=== PATIENT | female | born 1990 | race African-American/Black ===

== ENCOUNTER → 2017-11-23 14:12 | Outpatient (CLI) | payer MEDICAID, SELFPAY ==
[2017-11-28 07:56] LABS: HPV HC, High Risk Negative (Negative)
[2017-11-28 07:57] LABS: HPV Reflexed? YES, CHARGE PATIENT
== END ==
PROVIDERS: Visit Provider Obstetrics & Gynecology
DX: Z12.4 Encounter for screening for malignant neoplasm of cervix (principal)
CPT/HCPCS: 87624; 88175; G0145

== ENCOUNTER 2018-06-24 07:13 | Emergency (ER) | payer MEDICAID, SELFPAY ==
[2018-06-24 07:14] VITALS: BP 117/68; PULSE 82; RESP 17; TEMP 36.7; O2SAT 98; BMI 30.6
--- NOTE | 2018-06-24 07:36 | ED.DCSUM_ITS ---
- ER Visit Summary Date of Service: 06/24/18 Chief Complaint: Constipation History of Present Illness: The patient is a 27 F who is currently 8 weeks gestation presents to the emergency department abdominal pain and constipation. The patient states that she had a confirmed about 3 weeks ago. She has been battling hyperemesis. She was started on Zofran. She states since she was started on it, she has had rather significant diminished stool output. She is to the point where she is almost passing no stool and today has had difficulty passing gas. She describes some diffuse abdominal cramping. Her pain is worse when she stands and she feels lightheaded. She denies any fevers or chills. She has had prior history of . She denies any vaginal bleeding or discharge. Physical Examination: Vital signs reviewed General: Well-nourished, well-developed Head: Normocephalic, atraumatic Eyes: Pupils equal and reactive, extraocular muscles intact Neck, supple, no lymphadenopathy Heart: Regular rate and rhythm Respiratory: No distress, clear bilaterally Abdomen: Soft, nontender, nondistended, no peritoneal signs Back: Nontender Extremities: Nontender, no edema, no cords Skin: Normal color no rash Neuro: Alert and oriented, no focal or lateralizing deficits Test Results: [] Emergency Department Course and Treatment: The patient presents with constipation. She really has no reproducible abdominal tenderness. IV was established. She was given IV fluids. The patient did have an enema and had a large stool output. She is feeling markedly improved. Her repeat exam was soft and nontender. The patient will continue her stool softeners. She will be given magnesium citrate. She was counseled concerning symptoms and reasons to return. She will be discharged home. Treatment Plan: [] Disposition: Discharge Impression: 1. Constipation This note was generated with Bright!Taxation software. It may contain incorrect words, spelling, and punctuation that were not noted in review of the chart prior to signing ED Disposition - Plan for ED Patient: Disposition: Home or Assisted Living Instructions: ED Constipation Referrals: Care Physician,No Primary [Primary Care Provider] -
[2018-06-24 07:54] LABS: Absolute Lymphocyte Count 1.45 X10^3/ul (0.83-4.51); Absolute Neutrophil Count 4.7 X10^3/uL (2.0-7.7); Basophil# 0.01 X10^3/uL; Basophil% 0.2 % (0-1); Eosinophil# 0.04 X10^3/uL; Eosinophils% 0.6 % (0-5); Hematocrit 38.1 % (37-47); Hemoglobin 12.7 g/dl (12.0-15.0); Lymphocyte # 1.45 X10^3/ul (4.0); Lymphocyte % 22.1 % (19-41); Mean Corp Hgb Conc 33.3 g/gl (32-36); Mean Corpuscular Hgb 29.5 pg (27.0-32.0); Mean Corpuscular Volume 88.4 fL (81-99); Mean Platelet Vol. 10.9 fl (6.2-12.0); Monocyte# 0.34 X10^3/uL; Monocyte% 5.2 % (0-10); Neutrophil # 4.72 X10^3/uL (2.7-7.7); Neutrophil % 71.7 % (47-70); Platelet Count 131 K/mm3 (150-450); RBC Distribution Width CV 13.3 % (11.6-14.6); RBC Distribution Width SD 42.9 fl (35.1-43.9); Red Blood Count 4.31 M/mm3 (4.2-5.4); White Blood Count 6.6 K/mm3 (4.4-11.0)
[2018-06-24 07:55] LABS: POSITIVE COUNT NO; POSITIVE DIFFERENTIAL NO; POSITIVE MORPHOLOGY NO
[2018-06-24] MEDS: 0.9% Normal Saline 1,000 ML 1000 ML IV (07:55)
[2018-06-24 08:13] LABS: ALB/GLOB Ratio 1.1 RATIO (0.9-2.4); AST(SGOT) 22 U/L (15-37); Alanine Aminotransfer ALT/SGPT 23 U/L (13-56); Albumin, Serum 3.6 g/dL (3.2-5.0); Alkaline Phosphatase 58 U/L (45-117); Anion Gap 8 (5-15); BUN 10 mg/dL (7-18); BUN/Creat Ratio 11.9 RATIO (10-20); Calcium,Total 8.6 mg/dL (8.5-10.1); Chloride 108 mmol/L (98-107); Creatinine, Serum 0.84 mg/dL (0.55-1.02); EST Glomerular Filtration Rate 86 mL/min (>60); Est Glom Filt Rate - Afr Amer 104 mL/min (>60); Estimated Creatinine Clearance 98.69 ml/min; Globulin 3.3 g/dL (2.2-4.2); Glucose 96 mg/dL (74-106); Potassium 3.1 mmol/L (3.5-5.1); Protein, Total 6.9 g/dL (6.4-8.2); Sodium Level 137 mmol/L (136-145)
[2018-06-24 08:53] VITALS: BP 112/74; PULSE 73; RESP 15; O2SAT 99
== END 2018-06-24 08:55 | disposition home or self-care (01) ==
PROVIDERS: Emergency Provider Emergency Medicine
DX: K59.00 Constipation, unspecified (principal)
CPT/HCPCS: 80053; 85025; 96360; 99285; J7030

== ENCOUNTER 2018-06-27 06:25 | Emergency (ER) | payer MEDICAID, SELFPAY ==
[2018-06-27 06:26] VITALS: BP 102/64; PULSE 92; RESP 20; TEMP 36.4; O2SAT 100; BMI 28.3
--- NOTE | 2018-06-27 06:43 | ED.VISSUMM ---
- ER Visit Summary Date of Service: 06/27/18 Chief Complaint: Suprapubic abdominal pain. History of Present Illness: The patient is a 27 F AB 2 with those being miscarriages. Patient states she was diagnosed as 4 weeks ago. However states that is not a viable and her FAMILY WELFARE SOCIAL WORK PROFESSOR is going to do a D&C on . She states she recently was seen for constipation. And is complaining of suprapubic discomfort. When she was seen for constipation states that she had enema done which gave her significant relief. She denies any dysuria. No fever. No right-sided abdominal pain. She denies any vaginal bleeding or discharge. She denies any abdominal trauma. Physical Examination: Young female tearful and emotionally upset. Vital signs are stable and afebrile. Pulse ox 100% on room air no signs of hypoxia. H EENT exam unremarkable. Neck nontender no lymphadenopathy. Lungs clear to auscultation bilaterally. Heart regular rhythm no murmur. Abdomen soft. Nondistended. Normal bowel sounds no peritoneal signs. Suprapubic tenderness. No rebound, guarding or rigidity. No hernias or masses. No signs of obstruction. Patient moving all 4 extremities. Neurovascular intact. Back is nontender. Neurologically she is awake and alert with no focal motor deficits. Test Results: CBC shows normal white count 8 normal hemoglobin 13. BMP unremarkable. Urinalysis shows no acute infection. Serum test is positive. A quantitative hCG is pending. Emergency Department Course and Treatment: Patient treated with a liter normal saline and IV Zofran. Repeat exam patient is doing well at 08 100. Due to the positive test and the pelvic discomfort she was offered but deferred a pelvic exam. A pelvic ultrasound and quantitative hCG will be ordered and this patient will be turned over to the morning physician. Treatment Plan: Disposition per the results of the pelvic ultrasound and quantitative hCG. Disposition: [] Impression: Acute lower abdominal pain and pelvic pain Nausea and vomiting This note was generated with IN[employer] dictation software. It may contain incorrect words, spelling, and punctuation that were not noted in review of the chart prior to signing ED Disposition - Plan for ED Patient: Referrals: Care Physician,No Primary [Primary Care Provider] -
[2018-06-27] MEDS: Ondansetron 4 MG/2 ML Vial IV (06:46)
[2018-06-27] MEDS: 0.9% Normal Saline 1,000 ML 1000 ML IV (06:46)
--- NOTE | 2018-06-27 06:46 | ED.DCSUM_ITS ---
- ER Visit Summary Date of Service: 06/27/18 Chief Complaint: Suprapubic abdominal pain. History of Present Illness: The patient is a 27 F AB 2 with those being miscarriages. Patient states she was diagnosed as 4 weeks ago. However states that is not a viable and her GEODESIST is going to do a D&C on . She states she recently was seen for constipation. And is complaining of suprapubic discomfort. When she was seen for constipation states that she had enema done which gave her significant relief. She denies any dysuria. No fever. No right-sided abdominal pain. She denies any vaginal bleeding or discharge. She denies any abdominal trauma. Physical Examination: Young female tearful and emotionally upset. Vital signs are stable and afebrile. Pulse ox 100% on room air no signs of hypoxia. H EENT exam unremarkable. Neck nontender no lymphadenopathy. Lungs clear to auscultation bilaterally. Heart regular rhythm no murmur. Abdomen soft. Nondistended. Normal bowel sounds no peritoneal signs. Suprapubic tenderness. No rebound, guarding or rigidity. No hernias or masses. No signs of obstruction. Patient moving all 4 extremities. Neurovascular intact. Back is nontender. Neurologically she is awake and alert with no focal motor deficits. Test Results: CBC shows normal white count 8 normal hemoglobin 13. BMP unremarkable. Urinalysis shows no acute infection. Serum test is positive. A quantitative hCG is pending. Emergency Department Course and Treatment: Patient treated with a liter normal saline and IV Zofran. Repeat exam patient is doing well at 08 100. Due to the positive test and the pelvic discomfort she was offered but deferred a pelvic exam. A pelvic ultrasound and quantitative hCG will be ordered and this patient will be turned over to the morning physician. Treatment Plan: Disposition per the results of the pelvic ultrasound and quantitative hCG. Disposition: [] Impression: Acute lower abdominal pain and pelvic pain Nausea and vomiting This note was generated with Smart[employer] dictation software. It may contain incorrect words, spelling, and punctuation that were not noted in review of the chart prior to signing ED Disposition - Plan for ED Patient: Referrals: Care Physician,No Primary [Primary Care Provider] -
[2018-06-27 07:01] LABS: Bacteria 0 SEEN /hpf (None Seen); Mucous, Urine 0 SEEN /hpf (<or=2+); Red Blood Cells-Urine 0 SEEN /hpf (0-5); White Blood Cells 0 SEEN /hpf (0-5)
[2018-06-27 07:04] LABS: Absolute Lymphocyte Count 1.76 X10^3/ul (0.83-4.51); Absolute Neutrophil Count 5.7 X10^3/uL (2.0-7.7); Basophil# 0.01 X10^3/uL; Basophil% 0.1 % (0-1); Eosinophil# 0.06 X10^3/uL; Eosinophils% 0.7 % (0-5); Hematocrit 39.2 % (37-47); Hemoglobin 13.1 g/dl (12.0-15.0); Lymphocyte # 1.76 X10^3/ul (4.0); Mean Corp Hgb Conc 33.4 g/gl (32-36); Mean Corpuscular Hgb 29.8 pg (27.0-32.0); Mean Corpuscular Volume 89.3 fL (81-99); Mean Platelet Vol. 11.1 fl (6.2-12.0); Monocyte# 0.44 X10^3/uL; Monocyte% 5.5 % (0-10); Neutrophil # 5.73 X10^3/uL (2.7-7.7); Neutrophil % 71.6 % (47-70); POSITIVE COUNT NO; POSITIVE DIFFERENTIAL NO; POSITIVE MORPHOLOGY NO; Platelet Count 149 K/mm3 (150-450); RBC Distribution Width CV 13.4 % (11.6-14.6); RBC Distribution Width SD 43.9 fl (35.1-43.9); Red Blood Count 4.39 M/mm3 (4.2-5.4)
[2018-06-27 07:11] LABS: Anion Gap 10 (5-15); BUN 7 mg/dL (7-18); BUN/Creat Ratio 10.2 RATIO (10-20); Calcium,Total 8.6 mg/dL (8.5-10.1); Chloride 108 mmol/L (98-107); Creatinine, Serum 0.68 mg/dL (0.55-1.02); EST Glomerular Filtration Rate 110 mL/min (>60); Est Glom Filt Rate - Afr Amer 133 mL/min (>60); Estimated Creatinine Clearance 121.92 ml/min; Glucose 97 mg/dL (74-106); Potassium 3.4 mmol/L (3.5-5.1); Sodium Level 140 mmol/L (136-145)
[2018-06-27 07:14] LABS: Color, Urine Yellow (Yellow); Glucose, Dipstick Normal (Normal); Ketone-Dipstick 5 mg/dl (Negative); Leukocyte Esterase-Dipstick 100 /ul (Negative); Nitrite-Dipstick Negative (Negative); Occult Blood-Urine 10 /ul (Negative); Protein-Dipstick 30 mg/dl (Negative); Specific Gravity, Urine 1.015 (1.002-1.030); Urine Bilirubin Dipstick Negative (Negative); Urine Clarity Clear (Clear); Urine Urobilinogen 1 mg/dl (Normal); Urine pH 6.5 (5.0 - 8.0)
[2018-06-27 07:16] LABS: Squamous Epithelial Cells - UA 0-5 SEEN /hpf (5-10)
[2018-06-27 07:51] LABS: Pregnancy, Serum, hCG Quali. POSITIVE Negative (0-9 Nonpreg)
--- NOTE | 2018-06-27 08:01 | US_ITS ---
STUDY: FIRST TRIMESTER OBSTETRICAL ULTRASOUND REASON FOR EXAM: Female, 27 years old. Pelvic pain and pressure LMP: 05/02/2018 TECHNIQUE: Transvaginal TECHNICAL QUALITY: Adequate. PRIOR ULTRASOUND: None. FINDINGS: There is visualization of a single gestational sac in a normal intrauterine position. The mean sac diameter (MSD) measures 2.78 cm, indicating an estimated gestational age (EGA) of 8 weeks, 0 days. The gestational sac shape is within normal limits. There is no demonstrated yolk sac. . The placenta is non-visualized, due to early . There is no demonstrated embryo ( pole). The uterus measures 12.1 x 8.7 x 7.0. There is no demonstrated uterine fibroid. The cervix is closed. The right ovary measures 2.7 x 2.7 x 4.5. There is no right ovarian cyst. There is no visualized right adnexal mass or complex lesion. Mild increased vascularity of the right adnexal region although no discrete masses seen. The left ovary measures 5.1 x 5.2 x 2.8. There is no left ovarian cyst. There is no visualized left adnexal mass or complex lesion. There is no fluid in the cul de sac. US/Transvaginal w/Preg US IMPRESSION: 1. Intrauterine gestational sac with no demonstrated embryonic pole/yolk sac; nonviable . 2. No adnexal masses. Electronically Signed: Cyril Salazar MD at 9:45 EDT , Service support ,
[2018-06-27 08:25] VITALS: RESP 14
--- NOTE | 2018-06-27 08:53 | ED.RN ---
HCG [id number] CALLED FROM THE LAB. DR GREEN AWARE
[2018-06-27 10:00] VITALS: RESP 16
--- NOTE | 2018-06-27 10:05 | ED.DEP ---
ED Disposition - Plan for ED Patient: Disposition: Home or Assisted Living Instructions: ED Constipation Prescriptions: proMETHazine tablet [Phenergan] 25 mg PO Q6H PRN PRN #20 tab PRN Reason: Nausea Magnesium Citrate [Citrate Of Magnesia] 300 ml PO X1 #1 bottle Referrals: Navin Padilla MD [STAFF PHYSICIAN] - Keep [facility] appointment
[2018-06-27 10:26] VITALS: BP 105/79; PULSE 85; RESP 16; O2SAT 98
== END 2018-06-27 10:27 | disposition home or self-care (01) ==
PROVIDERS: Emergency Medicine; Emergency Provider Emergency Medicine
DX: O21.9 Vomiting of pregnancy, unspecified (principal); R10.2 Pelvic and perineal pain; Z3A.01 Less than 8 weeks gestation of pregnancy
CPT/HCPCS: 76817; 80048; 81001; 84702; 84703; 85025; 96361; 96374; 99285; J7030; A4216; J2405

== ENCOUNTER 2018-07-01 11:19 | Day surgery (SDC) | payer MEDICAID, SELFPAY ==
--- NOTE | 2018-07-01 | POC_PTH ---
PATIENT: IWONA JOHNSON LOC: [facility] [place] U#:[id number] AGE/SX: 27/F ROOM: RE07/01/[address]: Dr. Navin Padilla MD : 1990 BED: DIS: 07/01/2018 SPEC #: [id number] RECD: 07/01/18 14:31 STATUS: GALDINO ASHLIE #: [id number] JIMMY: 07/01/18 00:[address]: Navin Padilla DEPT: SURGICAL PATHOLOGY RECD BY: Gustavo Paul ENTERED: 07/01/18 14:31 SP TYPE: PROD CONC OTHR DR: No Primary Care Phys Tissues: Product of conception, NOS Procedures: Surgery Specimen Level IV HEADER OPERATION: Dilation and curettage, suction PRE-OP DIAGNOSIS: Missed TISSUE SUBMITTED: Products of conception MICROSCOPIC DIAGNOSIS Products of conception: [place], gestational endometrium and immature chorionic villi (products of conception). SJ:boris 07/02/18 MICROSCOPIC DESCRIPTION Slides are reviewed. GROSS DESCRIPTION Received in fixative is one container labeled with the patient's name and designated products of conception. The specimen consists of multiple irregular fragments of pink-red soft tissue that in aggregate measure 6 x 6 x 2 cm. No tissue is identified. Receptionist Telephone Operator tissue is submitted in three cassettes. / SJ:boris 07/01/18 TC:5 CPT: 90183
--- NOTE | 2018-07-01 07:46 | PCM.OPRPT ---
Report of Operation Date of Procedure: 07/01/18 Pre-Operative Diagnosis: Missed Post-Operative Diagnosis: Same Surgery/Procedure Performed:: Suction Dilation and Curettage Description of Surgical Findings:: 8 weeks size uterus. Products of conception appropriate for gestational age at time of demise town marshal: None Type of Anesthesia:: MAC Anesthesiologist: gIor Plummer Special Medications: none Specimen's removed: Products of Conception Drains: none Estimated Blood Loss (mL): 25cc Fluids Replaced: 500cc LR Description of Procedure: Xuan was taken tot he OR with IV running. She was given two grams of Cefotetan intravenously for surgical prophylaxis. MAC anesthesia was introduced without complication. She was then prepped and draped in the dorsal lithotomy position. The bladder was drained. A weighted speculum was placed in the posterior vagina, the cervix identified, and then grasped anteriorly with a single toothed tenaculum. The cervix was then dilated to 30 [place] without difficulty. A #8 suction curette was then placed and suction applied. Products of conception were obtained. A sharp curettage was then performed to a gritty texture throughout the endometrial cavity. The suction curette was reintroduced and the remaining products of conception were obtained. All instruments were then removed from the vagina. Hemostasis was excellent. Sponge and instrument counts were correct. She was reversed from anesthesia and taken to the recovery room in stable condition. Grafts/Implants Used: none - Complications none - Admit VTE Documentation VTE Present on Admission: No VTE Mechan Device Prophylaxis: SCD's VTE Pharm Prophylaxis ordered?: No
--- NOTE | 2018-07-01 07:51 | OP.PCM_ITS ---
Report of Operation Date of Procedure: 07/01/18 Pre-Operative Diagnosis: Missed Post-Operative Diagnosis: Same Surgery/Procedure Performed:: Suction Dilation and Curettage Description of Surgical Findings:: 8 weeks size uterus. Products of conception appropriate for gestational age at time of demise vocational services specialist: None Type of Anesthesia:: MAC Anesthesiologist: Igor Plummer Special Medications: none Specimen's removed: Products of Conception Drains: none Estimated Blood Loss (mL): 25cc Fluids Replaced: 500cc LR Description of Procedure: Xuan was taken tot he OR with IV running. She was given two grams of Cefotetan intravenously for surgical prophylaxis. MAC anesthesia was introduced without complication. She was then prepped and draped in the dorsal lithotomy position. The bladder was drained. A weighted speculum was placed in the posterior vagina, the cervix identified, and then grasped anteriorly with a single toothed tenaculum. The cervix was then dilated to 30 [place] without difficulty. A #8 suction curette was then placed and suction applied. Products of conception were obtained. A sharp curettage was then performed to a gritty texture throughout the endometrial cavity. The suction curette was reintroduced and the remaining products of conception were obtained. All instruments were then removed from the vagina. Hemostasis was excellent. Sponge and instrument counts were correct. She was reversed from anesthesia and taken to the recovery room in stable condition. Grafts/Implants Used: none - Complications none - Admit VTE Documentation VTE Present on Admission: No VTE Mechan Device Prophylaxis: SCD's VTE Pharm Prophylaxis ordered?: No
[2018-07-01 11:45] LABS: Hematocrit 37.4 % (37-47); Hemoglobin 12.3 g/dl (12.0-15.0); Mean Corp Hgb Conc 32.9 g/gl (32-36); Mean Corpuscular Hgb 29.8 pg (27.0-32.0); Mean Corpuscular Volume 90.6 fL (81-99); Mean Platelet Vol. 10.5 fl (6.2-12.0); Platelet Count 143 K/mm3 (150-450); RBC Distribution Width CV 13.1 % (11.6-14.6); RBC Distribution Width SD 42.6 fl (35.1-43.9); Red Blood Count 4.13 M/mm3 (4.2-5.4); White Blood Count 4.3 K/mm3 (4.4-11.0)
[2018-07-01 11:48] LABS: Scan Indicated on CBC? Y/N NO
[2018-07-01 11:53] LABS: International Normalized Ratio 1.1; Prothrombin Time (Protime)PT. 13.8 SECONDS (11.7-14.9)
[2018-07-01 11:54] VITALS: BP 97/76; PULSE 67; RESP 18; TEMP 36.9; O2SAT 100; BMI 29.8
[2018-07-01 11:54] LABS: Partial Thromboplast Time 30.6 Seconds (24.1-36.2)
--- NOTE | 2018-07-01 12:52 | DCINST_ITS ---
You will use the following diet at home:: No restrictions Your food should be the consistency of: Regular Discharge Activity: Return to Normal Activity, No Restrictions, May Drive, May not drive while taking narcotic pain medications., May Shower Return to work on:: 07/05/18 May shower in (days): 0 May resume sexual activity in: 3 weeks Call your doctor if your incision/area has: Sudden Increased Bleeding, Foul Smelling Discharge Call your doctor if you observe: Fever of 101 or Higher, Inability to urinate, Inability to have a bowel movement, Using more than one pad per hour, Shortness of breath, Chest pain, Calf discomfort, Uncontrolled pain Cleanse incision/area with: Soap & Water Allergies/Adverse Reactions: Allergies No Known Allergies Allergy (Verified 06/30/18 15:32) Medications to take at Discharge proMETHazine tablet [Phenergan] 25 mg PO Q6H PRN PRN #20 tab 06/27/18 Ibuprofen 600 mg PO 4X/DAY #30 tab 07/01/18 Oxycodone [Oxyir] 5 mg PO Q6H PRN PRN 7 Days #10 tab 07/01/18 The following prescriptions were given: Oxycodone [Oxyir] 5 mg PO Q6H PRN PRN 7 Days #10 tab PRN Reason: Severe Pain (6-01/20) Ibuprofen 600 mg PO 4X/DAY #30 tab Primary Care Physician: Care Physician,No Primary [Primary Care Provider] - Test Results: Test results from this visit will be discussed in further detail at your follow- up appointment, if applicable. Please Follow Up With: Navin Padilla MD When: one week Proposed Discharge Date: 07/01/18
[2018-07-01 14:20] VITALS: BP 105/74; BP 97/76; PULSE 88; RESP 16; TEMP 36.1; O2SAT 98
[2018-07-01 14:25] VITALS: BP 117/84; BP 97/76; PULSE 86; RESP 16; O2SAT 100
[2018-07-01 14:30] VITALS: BP 110/79; BP 97/76; PULSE 74; RESP 16; O2SAT 99
[2018-07-01 14:35] VITALS: BP 105/63; BP 97/76; PULSE 74; RESP 16; TEMP 36.4; O2SAT 100
[2018-07-01 15:20] VITALS: BP 97/76
== END 2018-07-01 15:23 | disposition home or self-care (01) ==
LOC: SDC 11:20 → AC 11:20
PROVIDERS: Referring Provider Obstetrics & Gynecology; Visit Provider Obstetrics & Gynecology
PROC: (CPT 59820; principal; 2018-07-01 12:50)
DX: O02.1 Missed abortion (principal); Z3A.08 8 weeks gestation of pregnancy
CPT/HCPCS: 59820; 85027; 85610; 85730; 86850; 86900; 88305; J7120; J2405

== ENCOUNTER → 2018-09-20 | Outpatient (CLI) | payer MEDICAID, SELFPAY | END | disposition home or self-care (01) | LOC: LABSPEC 14:43 | PROVIDERS: Visit Provider Obstetrics & Gynecology | DX: N39.0 Urinary tract infection, site not specified (principal) | CPT/HCPCS: 87086; 87088 ==

== ENCOUNTER 2019-02-10 01:01 | Emergency (ER) | payer MEDICAID, SELFPAY ==
[2019-02-10 01:04] VITALS: BP 117/80; PULSE 90; RESP 18; TEMP 36.7; O2SAT 96; BMI 32.0
--- NOTE | 2019-02-10 01:20 | EKG12_ITS ---
Test Reason : CP Blood Pressure : / mmHG Vent. Rate : 092 BPM Atrial Rate : 092 BPM P-R Int : 158 ms QRS Dur : 082 ms QT Int : 356 ms P-R-T Axes : 047 040 041 degrees QTc Int : 440 ms Normal sinus rhythm Normal ECG Confirmed by CAMILLA JOHNSON, MARIZA ([id number]), editor school photograph QUAN BOWEN ([id number]) on 02/14/2019 8:27:28 AM Referred By: Arnulfo Brock Confirmed By:CHRISTINA SAMPSON MD
--- NOTE | 2019-02-10 01:20 | RAD_ITS ---
STUDY: X-RAY CHEST REASON FOR EXAM: Female, 28 years old. Chest pain and dizziness x2-3 days. TECHNIQUE: PA and lateral views of the chest. COMPARISON: None. FINDINGS: There are superimposed monitor leads. The lungs are clear and expanded. There is no demonstrated pleural abnormality. Normal size heart. Normal mediastinum and rubio. Normal visualized pulmonary arteries. Normal visualized aortic arch and descending thoracic aorta. Normal visualized thoracic spine. Normal visualized ribs, clavicles, and shoulders. There is no demonstrated abnormality of the visualized soft tissue structures of the upper abdomen. RAD/Chest PA and Lateral IMPRESSION: Normal x-ray examination of the chest. Electronically Signed: Hayley Hamilton MD at 2:06 EDT , Service support ,
--- NOTE | 2019-02-10 01:21 | CT_ITS ---
STUDY: CT BRAIN WITHOUT CONTRAST REASON FOR EXAM: Female, 28 years old. Headache, lightheaded, memory loss, feels off balance, chest pain RADIATION DOSAGE (If Supplied By Facility): CTDIvol = ( 44.99 ) mGy, DLP = ( 796.11 ) mGycm TECHNIQUE: Transaxial CT imaging of the brain was performed without administration of intravenous contrast material. Individualized dose optimization techniques were used for this CT. COMPARISON: CT brain noncontrast 09/24/2015 FINDINGS: Normal soft tissue structures. Normal calvarium. Normal size ventricles and extra-axial spaces for the patient's age. Normal white matter tracts of the cerebral hemispheres. Normal basal ganglia and thalami. Normal brainstem. Normal cerebellum. There is no intracranial hemorrhage. There are no findings of an acute ischemic infarction. Normal visualized paranasal sinuses. CT/Brain/Head without Contrast IMPRESSION: There is no acute intracranial pathology. There is no significant interval change. Electronically Signed: Hayley Hamilton MD at 2:12 EDT , Service support ,
--- NOTE | 2019-02-10 01:26 | ED.DCSUM_ITS ---
History of Present Illness Chief Complaint: Chest Pain Informant: Patient Onset: Days Context: Gradual Timing: Waxes and wanes Quality: Tightness Location: across chest Current Severity: Mild Maximum Severity: Moderate Worsened by: nothing in particular Associated Symptoms: Tingling - altered sensation in both legs intermittently -- see below. Negative for: Fever, Nausea, Vomiting, Sore Throat, Sinus Pressure, Numbness, Photophobia Injury: - - no injury Narrative: Patient presents around 1 AM with multiple complaints. Some of them is been there for months, others for 3 days. She has had chest tightness and shortness of breath that has been unexplained for 2 or 3 days. Mostly there, sometimes worse than others, sometimes worse with exertion. She denies any hemoptysis but has had a nonproductive cough lately. Does not feel like she really has other cold symptoms but has a child that has had a cold recently. Left ear is been bothering her, she has had lots of ear infections as a child. No throat pain. No neck pain or fevers. She has episodes of transient abdominal discomfort that lasts for a couple of minutes that feels like her intestines flipping. No nausea vomiting or diarrhea associated with this. No urinary symptoms. She has had several months of suddenly falling to the side without dizziness, but for the same period of time, has had totally separate episodes of random lightheadedness that sometimes is triggered with standing up even if it is not very fast. She has never passed out but has come close a couple times. She does not have any associated chest pain or palpitations when that happens. In t he last 3 days, the chest discomfort and trouble breathing has not necessarily triggered more episodes of lightheadedness. She denies any other associated symptoms with her disequilibrium or feeling off balance. She has headaches but states she has had those all of her life. She has had no thunderclap or severe headaches, but they have waxed and waned and been bothersome at times, but not very much right now. Right now she has the chest tightness it is mild. She is not dyspneic sitting here at rest. She has no known medical problems and is tearful concerned she may have a brain tumor, which is what brought her to the [facility]. In her legs, she states intermittently for several weeks on a small area on her medial right mid thigh, and anterior mid left lower leg, she has a sensation that someone poured hot water on her. They do not necessarily occur together. She denies any renata numbness or weakness in any extremity. Past Medical History - Allergies and Home Meds Allergies/Adverse Reactions: Allergies No Known Allergies Allergy (Verified 02/10/19 01:06) Primary Care Physician: Care Physician,No Primary [Family Provider] - Past Medical History: None Lives: With Family Smoking Status: Never smoker Drugs: None - no IVDU Review of Systems General: Reports: Malaise. Denies: Chills, Fever, Sweats Eyes: Denies: Visual changes - bilaterally, Diplopia ENT: Reports: Left ear pain. Denies: Rhinorrhea, Sore throat Cardiovascular: Reports: Chest pain. Denies: Palpitations, Heart racing Respiratory: Reports: Dyspnea, Cough, Dyspnea on exertion. Denies: Sputum Gastrointestinal: Reports: Abdominal pain. Denies: Nausea, Vomiting, Diarrhea, Melena, Hematochezia Genitourinary: Denies: Dysuria, Hematuria, Frequency Musculoskeletal: Reports: Neck pain - chronically stiff neck and shoulders. Denies: Myalgias, Arthralgias, Back pain, Swelling, Extremity Pain Skin: Denies: Rash, Wounds Neurological: Reports: Headache, Parasthesia - like hot water poured on both legs. Denies: Weakness, Numbness Psych: Denies: Suicidal thoughts, Suicidal ideations Endocrine: Denies: Polyuria, Polydipsia, Heat intolerance, Cold intolerance Hematologic: Denies: Easy bruising, Easy bleeding Allergy: Denies: Uticaria, Swelling of the mouth, Swelling of the tongue Physical Exam Vital Signs/Narrative: Vital Signs Temp Pulse Resp BP Pulse Ox 02/10/19 01:04 98.0 F 90 18 117/80 96 Inital Vital Signs reviewed: Yes General: Well nourished, Well developed Head: NC, AT Eyes: Perrl, EOMI. Negative for: Scleral icterus ENT: Moist mucous membranes, No rhinorrhea, TM's clear - and nml EAC bilat, - - POP clear. Negative for: Sinus tenderness Neck: Supple, No Lymphadenopathy, No JVD, Nontender, No Meningismus Cardiovascular: Regular rate, Regular rhythm, No murmurs Respiratory: No distress, CTA bilaterally, Chest nontender Abdomen: Soft, Nontender, Nondistended, Normal bowel sounds, No masses Back: Nontender, Normal Inspection. Negative for: CVA tenderness Extremities: Nontender, No edema. Negative for: Calf Tenderness Skin: Normal color, No rash, No Trauma Neuro: Alert, Oriented x3, Cranial nerves II-XII grossly intact, Normal Strength, Normal Sensation, Normal DTR, Normal Gait Psychological: Normal affect, Normal Mood - NIH Stroke Scale 1a Level of Consciousness: 0 1b LOC Questions (Score 2 if aphasic/stupor): 0 1c LOC Commands (Only score 1st attempt): 0 2 Best Gaze (If aphasic, use reflexive mvmts.): 0 3 Visual: 0 4 Facial Palsy: 0 5 Motor Arm Right (UN = amputation/fusion): 0 5 Motor Arm Left: 0 6 Motor Leg Right: 0 6 Motor Leg Left: 0 7 Limb ataxia (Only + if out of proportion): 0 8 Sensory (Aphasia/stupor=0 or 1, coma=2): 0 9 Best Language: 0 10 Dysarthria (mute, coma=2, intubated=UN): 0 11 Extinction and Inattention (only scored if +): 0 Total Score: 0 Diagnostic/Tx/Re-eval Impressions Chest X-Ray 02/10/19 01:20 IMPRESSION: Normal x-ray examination of the chest. Electronically Signed: Hayley Hamilton MD at 2:06 EDT , Service support , Brain CT 02/10/19 01:21 IMPRESSION: There is no acute intracranial pathology. There is no significant interval change. Electronically Signed: Hayley Hamilton MD at 2:12 EDT , Service support , 02/10/19 01:20 Chest PA and Lateral [RAD] Stat 02/10/19 01:21 Brain/Head without Contrast [CT] Stat Laboratory Results 02/10/19 02/10/19 02/10/19 01:20 01:20 02:00 WBC 8.3 RBC 4.44 Hgb 12.9 Hct 39.2 MCV 88.3 MCH 29.1 MCHC 32.9 RDW Std Deviation 43.1 RDW Coeff of [place]land[place] 13.3 Plt Count 155 MPV 10.9 Immature Gran % (Auto) 0.400 Neut % (Auto) 59.2 Lymph % (Auto) 31.4 [place] % (Auto) 7.3 Eos % (Auto) 1.3 Baso % (Auto) 0.4 Absolute Neuts (auto) 4.9 Absolute Lymphs (auto) 2.61 Nucleated RBC % 0 Sodium 140 Potassium 3.3 L Chloride 108 H Carbon Dioxide 27.0 Anion Gap 5 BUN 7 Creatinine 0.72 Estim Creat Clear Calc 114.13 Est GFR (MDRD) Af Amer 124 Est GFR (MDRD) Non-Af 103 BUN/Creatinine Ratio 9.7 L Glucose 89 Calcium 8.4 L Total Bilirubin 0.40 AST 13 L ALT 12 L Alkaline Phosphatase 53 Troponin I < 0.015 Total Protein 7.0 Albumin 3.6 Globulin 3.4 Albumin/Globulin Ratio 1.1 Urine Color Urine Clarity Urine pH Ur Specific [place] Urine Protein Urine Glucose (UA) Urine Ketones Urine Occult Blood Urine Nitrite Urine Bilirubin Urine Urobilinogen Ur Leukocyte Esterase Urine RBC Urine WBC Ur Squamous Epith Cells Urine Bacteria Urine Mucus Urine Test Negative 02/10/19 02:00 WBC RBC Hgb Hct MCV MCH MCHC RDW Std Deviation RDW Coeff of [place] Plt Count MPV Immature Gran % (Auto) Neut % (Auto) Lymph % (Auto) [place] % (Auto) Eos % (Auto) Baso % (Auto) Absolute Neuts (auto) Absolute Lymphs (auto) Nucleated RBC % Sodium Potassium Chloride Carbon Dioxide Anion Gap BUN Creatinine Estim Creat Clear Calc Est GFR (MDRD) Af Amer Est GFR (MDRD) Non-Af BUN/Creatinine Ratio Glucose Calcium Total Bilirubin AST ALT Alkaline Phosphatase Troponin I Total Protein Albumin Globulin Albumin/Globulin Ratio Urine Color Yellow Urine Clarity Clear Urine pH 6.5 Ur Specific [place] 1.010 Urine Protein Negative Urine Glucose (UA) Normal Urine Ketones Negative Urine Occult Blood Negative Urine Nitrite Negative Urine Bilirubin Negative Urine Urobilinogen Normal Ur Leukocyte Esterase Negative Urine RBC 0 SEEN Urine WBC 0 SEEN Ur Squamous Epith Cells 5-10 SEEN Urine Bacteria 0 SEEN Urine Mucus 0 SEEN Urine Test - Rhythm Strip Rhythm Strip: Sinus Rhythm Rate: 90 Ectopy: None - EKG Initial EKG Interpretation: Sinus Rhythm, No Acute Injury Pattern - normal EKG. no S1Q3T3 pattern. - Medical Decision Making PERC score is 0, therefore I do not think she needs further work-up for pulmonary embolus. Chest x-ray is unremarkable. CT head is unremarkable. Labs are normal except for hypokalemia at 3.3. She was given a GI cocktail for her chest discomfort but she refused to drink anymore after tasting at. She was offered an albuterol treatment, but she declined. She did take a potassium chloride 40 mEq pill that was given to her. She states her chest is bothering her very mildly, she declines other treatments and is okay now that she is reassured that her head CT is negative. She states she has been having some tingling in her arm from time to time. We discussed the possibility of multiple sclerosis, and the fact that she would need an MRI as an outpatient if she continues to have symptoms to rule that out. She states her mom has multiple sclerosis. It is possible that her hypokalemia was found due to an acute respiratory alkalosis from anxiety/hyperventilation, and that she really is not full-body low on potassium. However I think it is reasonable to treat her with potassium supplementation for several days, to see if it helps improve her symptoms, since her renal function is normal. She is comfortable with this plan and following up. ED Disposition - Plan for ED Patient: Disposition: Home or Assisted Living Diagnosis: Chest pain, unspecified, Intermittent headache, Multiple somatic complaints, Hypokalemia Instructions: CHEST PAIN, NonCardiac, Hypokalemia Prescriptions: Potassium Chloride [K-Dur] 20 meq PO TID #12 tab Prescription Printed Referrals: Adam Sky MD [STAFF PHYSICIAN] - 1 Week if not improving
[2019-02-10 01:28] LABS: Absolute Lymphocyte Count 2.61 X10^3/uL (0.83-4.51); Absolute Neutrophil Count 4.9 X10^3/uL (2.0-7.7); Basophil# 0.03 X10^3/uL; Basophil% 0.4 % (0-1); Eosinophil# 0.11 X10^3/uL; Eosinophils% 1.3 % (0-5); Hematocrit 39.2 % (37-47); Hemoglobin 12.9 g/dL (12.0-15.0); Lymphocyte # 2.61 X10^3/ul (4.0); Lymphocyte % 31.4 % (19-41); Mean Corp Hgb Conc 32.9 g/dL (32-36); Mean Corpuscular Hgb 29.1 pg (27.0-32.0); Mean Corpuscular Volume 88.3 fL (81-99); Mean Platelet Vol. 10.9 fl (6.2-12.0); Monocyte# 0.61 X10^3/uL; Monocyte% 7.3 % (0-10); NRBC Flagged by Analyzer 0 % (0-5); Neutrophil # 4.93 X10^3/uL (2.7-7.7); Neutrophil % 59.2 % (47-70); Platelet Count 155 K/mm3 (150-450); RBC Distribution Width CV 13.3 % (11.6-14.6); RBC Distribution Width SD 43.1 fl (35.1-43.9); Red Blood Count 4.44 M/mm3 (4.2-5.4); White Blood Count 8.3 K/mm3 (4.4-11.0)
[2019-02-10 01:59] LABS: ALB/GLOB Ratio 1.1 RATIO (0.9-2.4); AST(SGOT) 13 U/L (15-37); Alanine Aminotransfer ALT/SGPT 12 U/L (13-56); Albumin, Serum 3.6 g/dL (3.2-5.0); Alkaline Phosphatase 53 U/L (45-117); Anion Gap 5 (5-15); BUN 7 mg/dL (7-18); BUN/Creat Ratio 9.7 RATIO (10-20); Calcium,Total 8.4 mg/dL (8.5-10.1); Chloride 108 mmol/L (98-107); Creatinine, Serum 0.72 mg/dL (0.55-1.02); EST Glomerular Filtration Rate 103 mL/min (>60); Est Glom Filt Rate - Afr Amer 124 mL/min (>60); Estimated Creatinine Clearance 114.13 ml/min; Globulin 3.4 g/dL (2.2-4.2); Glucose 89 mg/dL (74-106); Potassium 3.3 mmol/L (3.5-5.1); Sodium Level 140 mmol/L (136-145)
[2019-02-10 02:04] LABS: Bacteria 0 SEEN /hpf (None Seen); Mucous, Urine 0 SEEN /hpf (<or=2+); Red Blood Cells-Urine 0 SEEN /hpf (0-5); White Blood Cells 0 SEEN /hpf (0-5)
[2019-02-10 02:08] LABS: Internal QC Validated? YES +Cl - CLEAR BKGD; Pregnancy, Urine Negative Negative
[2019-02-10 02:09] LABS: Color, Urine Yellow (Yellow); Glucose, Dipstick Normal (Normal); Ketone-Dipstick Negative (Negative); Leukocyte Esterase-Dipstick Negative /ul (Negative); Nitrite-Dipstick Negative (Negative); Occult Blood-Urine Negative /ul (Negative); Protein-Dipstick Negative (Negative); Urine Bilirubin Dipstick Negative (Negative); Urine Clarity Clear (Clear); Urine Urobilinogen Normal (Normal); Urine pH 6.5 (5.0 - 8.0)
[2019-02-10 02:12] VITALS: PULSE 78; RESP 19; O2SAT 96
[2019-02-10 02:13] LABS: Squamous Epithelial Cells - UA 5-10 SEEN /hpf (5-10)
[2019-02-10 02:44] VITALS: BP 106/81; PULSE 85; RESP 16; O2SAT 96
== END 2019-02-10 02:44 | disposition home or self-care (01) ==
PROVIDERS: Emergency Provider Emergency Medicine; PCP Family Medicine; Referring Provider Family Medicine
DX: R07.89 Other chest pain (principal); R51 Headache; E87.6 Hypokalemia; H92.02 Otalgia, left ear; M54.2 Cervicalgia; G89.29 Other chronic pain; R10.9 Unspecified abdominal pain; R20.2 Paresthesia of skin; R05 Cough
CPT/HCPCS: 70450; 71046; 80053; 81001; 81025; 84484; 85025; 93005; 99284; A4216

== ENCOUNTER → 2019-06-23 | Outpatient (CLI) | payer MEDICAID, SELFPAY ==
[2019-06-30 17:01] LABS: HPV Reflexed? YES, CHARGE PATIENT
== END | disposition home or self-care (01) ==
LOC: LABSPEC 16:44
PROVIDERS: PCP Family Medicine; Visit Provider Obstetrics & Gynecology
DX: Z11.3 Encounter for screening for infections with a predominantly sexual mode of transmission (principal); Z12.4 Encounter for screening for malignant neoplasm of cervix
CPT/HCPCS: 87491; 87591; 87624; 88175; G0145

== ENCOUNTER 2021-11-16 23:18 | Emergency (ER) | payer MEDICAID, SELFPAY ==
[2021-11-16 23:18] VITALS: BP 114/77; PULSE 91; RESP 15; TEMP 36.4; O2SAT 98; BMI 39.1
[2021-11-17 00:23] LABS: Absolute Lymphocyte Count 2.74 X10^3/uL (0.83-4.51); Absolute Neutrophil Count 5.9 X10^3/uL (2.0-7.7); Basophil# 0.03 X10^3/uL; Basophil% 0.3 % (0-1); Eosinophil# 0.16 X10^3/uL; Eosinophils% 1.7 % (0-5); Hematocrit 35.2 % (37-47); Hemoglobin 11.3 g/dL (12.0-15.0); Lymphocyte # 2.74 X10^3/ul (0.83-4.51); Mean Corp Hgb Conc 32.1 g/dL (32-36); Mean Corpuscular Hgb 28.4 pg (27.0-32.0); Mean Corpuscular Volume 88.4 fL (81-99); Mean Platelet Vol. 11.2 fl (6.2-12.0); Monocyte# 0.58 X10^3/uL; Monocyte% 6.1 % (0-10); NRBC Flagged by Analyzer 0 % (0-5); Neutrophil % 62.6 % (47-70); Platelet Count 175 K/mm3 (150-450); RBC Distribution Width CV 13.7 % (11.6-14.6); RBC Distribution Width SD 44.5 fl (35.1-43.9); Red Blood Count 3.98 M/mm3 (4.2-5.4); White Blood Count 9.4 K/mm3 (4.4-11.0)
--- NOTE | 2021-11-17 00:25 | EDS_ITS ---
HPI HPI - Female History of Present Illness Chief Complaint: Vag Bld, Preg Informant: patient Narrative Narrative: G6, P3 potentially 6 weeks gestation by dates. Last menstrual period September 30. Reported back then had intercourse took the morning-after pill. Reports 9 days ago home negative, repeated 2 days later had home positive. Started have some bleeding afterwards. States has clots. The gone through 1 pa d every 2 hours daily for the past 7 days. She is at the [facility]ground [employer]. Due to increasing bleeding reported lightheaded symptoms and increasing cramping she came here. Patient had a previous and previous ectopic . She previously seen Dr. Padilla. Denies any anticoagulation medications. Prior similar symptoms: No PFSH PFSH Medical History Anemia Ectopic Home Medications NK 11/17/21 [History Last Taken Unknown] Allergy/AdvReac Type Severity Reaction Status Date / Time No Known Allergies Allergy Verified 11/16/21 23:23 Social History Smoking Status: Never smoker ROS ROS ED Constitutional Constitutional ED: Denies chills, fever(s) or sweats Eyes Eyes: Denies change in vision ENT ENT ED: Denies dysphagia or sore throat Cardiovascular Cardiovascular: Denies chest pain, leg edema, palpitations or racing heartbeat Respiratory/Chest Respiratory/Chest: Denies cough, dyspnea or dyspnea on exertion Gastrointestinal Gastrointestinal: Denies abdominal pain, diarrhea, nausea or vomiting Genitourinary Genitourinary ED: Reports other Details: Pelvic cramping with vaginal bleeding ; Denies dysuria, hematuria or urinary frequency Musculoskeletal Musculoskeletal: Denies back pain, extremity pain or neck pain Integumentary Denies rash or wounds Neurologic Neurologic: Denies headache(s), paresthesias or weakness EXAM Physical Exam Const Vital Signs: 11/16/21 23:18 11/17/21 03:37 Temperature 97.6 F L Temperature Source Temporal Pulse Rate 91 64 Respiratory Rate 15 18 Blood Pressure 114/77 116/77 Blood Pressure Mean 89 Pulse Ox 98 97 Oxygen Delivery Method Room Air Positive well nourished and well developed General Appearance ED: well developed and NAD HEENT Reports moist mucous membranes normocephalic and atraumatic Eyes PERRL, EOMs intact bilaterally and conjunctivae normal General Eye ED: Yes normal appearance of both eyes Neck no lymphadenopathy and supple General: Negative for tenderness Chest Wall Chest: Negative for tenderness Resp normal respiratory effort and normal air movement Effort and Inspection: symmetric chest movement; Negative for respiratory distress Cardio regular rate, regular rhythm and no murmurs Peripheral Pulses: pulses 2+ throughout GI normal to inspection, nondistended, normoactive bowel sounds and non-tender Palpation: Negative for guarding or rebound tenderness present Narrative: Nursing present for pelvic exam. Normal external genitalia. Speculum examination there is mild blood in the vault, there was small clots coming from the cervical os. No cervical lesions. Back/Spine no CVA tenderness and no thoracic nor lumbar tenderness Extremity normal to inspection General Extremety ED: Negative for edema or tenderness General Extremity: Negative for edema Neuro oriented x3 and no sensory deficits noted Sensorium / Orientation: awake and alert Skin no rashes or lesions noted and no wounds MDM MDM MDM Narrative Medical decision making narrative: Vaginal exam with slight bleeding with small clots from the cervical os. Vitals are stable. Hemoglobin obtained at 11.3. Her serum hCG did return positive quant level sent was 1586. O positive from previous labs in the system. With cramping pain persist for 2 days ultrasound obtained to rule out ectopic . Results noted no findings of a however I will call ectopic cannot be excluded especially with her serum quant at 1586. She is reporting extensive pain and bleeding for a week however normal vitals and hemoglobin 11.3. It was 03/2019. Evaluation records she had a elective AB in 2014 requiring a D&C from retained products of conception. In 2019 she had a missed requiring D&C and not an ectopic . However with patient's findings with no seen with a quant over 1500, differential could be recurrent miscarriage versus early with possible ectopic. I did speak with on-call OB Dr. Bassam Fernandes discussed patient's history and findings. With patient's vitals being stable along with hemoglobin 11.3, he states for the monitor at home bleeding. She will need another quant to be done in his office this coming Thursday. Reports a delayed hCG would be more helpful. Management will be determined in the office. Discussed with return precautions if she soaks through 1 pad hourly for 4 straight hours becomes more symptomatic to return to the ED for evaluation. I discussed this plan with the patient understands agrees with plan. She will use Tylenol in the meantime. During evaluation the ED, has minimal bleeding. All questions were answered. Lab Data Attestation: I reviewed the patient's lab results. Labs: Laboratory Results - last 24 hr 11/16/21 11/16/21 11/16/21 23:30 23:30 23:30 WBC 9.4 RBC 3.98 L Hgb 11.3 L Hct 35.2 L MCV 88.4 MCH 28.4 MCHC 32.1 RDW Std Deviation 44.5 H RDW Coeff of [place]land[place] 13.7 Plt Count 175 MPV 11.2 Immature Gran % (Auto) 0.300 Neut % (Auto) 62.6 Lymph % (Auto) 29.0 [place] % (Auto) 6.1 Eos % (Auto) 1.7 Baso % (Auto) 0.3 Absolute Neuts (auto) 5.9 Absolute Lymphs (auto) 2.74 Nucleated RBC % 0 HCG, Quant 1586 H Serum , Qual POSITIVE H Radiography Diagnostic Testing: Clinical Impression(s) from Imaging Studies Obstetrics Ultrasound 11/17/21 00:37 IMPRESSION: 1. No demonstrated intrauterine gestation. 2. There are no positive findings for ectopic in this study, however, an occult ectopic cannot be excluded in the absence of a demonstrated intrauterine gestation. Correlation with serial quantitative ? hCG measurements is advised. Electronically Signed: Tomy Mirza MD at 2:57 EDT Reading Location ID and State: [address] [place] [address] , Service support , Discharge Plan Triage Chief Complaint: Vag Bld, Preg ED Provider: Kee Barajas Dx/Rx/DC Orders Clinical Impression: , Dysfunctional uterine bleeding Instructions: ED Dysfunctional Uterine Bleeding Prescriptions: No Action NK Primary Care Provider: Arnulfo Brock Referrals: Bassam Fernandes MD [Med Staff - Active Staff] - 11/20/21 Arnulfo Brock MD [Primary Care Provider] - Activity Restrictions/Additional Instructions: hCG 1586, hemoglobin 11.3. Your ultrasound does not show current . You could be going through a miscarriage with bleeding for a week however this could be also early . Dr. Fernandes has office this coming Thursday. Called to be seen that day. He would need your hCG rechecked. If bleeding worsens soaking 1 pad every hour for 4 straight hours with worsening symptoms, return to the ED for reevaluation. May use Tylenol 1 g every 6 hours as needed for discomfort. Disposition Disposition: Home, Self Care Discharge Date/Time: 11/17/21 03:39
[2021-11-17 00:32] LABS: Internal QC Validated? YES +Cl - CLEAR BKGD
[2021-11-17 00:35] LABS: Pregnancy, Serum, hCG Quali. POSITIVE Negative
--- NOTE | 2021-11-17 00:37 | US_ITS ---
EXAM: US , TRANSVAGINAL CLINICAL INDICATION: pelvic pain -- vag bleed pelvic pain -- vag bleed. LMP: 09/30/2021. This would correspond with a gestational age of 6 weeks, 6 days and an estimated date of delivery of 07/07/2022. TECHNIQUE: Real-time transvaginal obstetrical ultrasound of the maternal pelvis and a first trimester with image documentation. Transvaginal imaging was used for better evaluation of the fetus and adnexa. This report was created using [email or web address] report generation technology. COMPARISON: None FINDINGS: GESTATION: There is no demonstrated intrauterine gestation. PLACENTA/AMNIOTIC FLUID: Cannot be adequately evaluated due to the early gestational age. UTERUS/CERVIX: The uterus is anteverted and measures 12.3 x 7.4 x 6.2 cm. Endometrium measures 1.0 cm in thickness and it is hyperechoic. No myometrial mass. OVARIES: The right ovary measures 3.1 x 1.7 x 1.9 cm. The left ovary measures 3.6 x 3.0 x 1.5 cm. No mass. FREE FLUID: No free fluid. US/Transvaginal w/Preg US IMPRESSION: 1. No demonstrated intrauterine gestation. 2. There are no positive findings for ectopic in this study, however, an occult ectopic cannot be excluded in the absence of a demonstrated intrauterine gestation. Correlation with serial quantitative ? hCG measurements is advised. Electronically Signed: Tomy Mirza MD at 2:57 EDT ,
[2021-11-17 01:11] LABS: hCG Titer Quant., Serum 1586 mIU/mL (1-3)
[2021-11-17 03:37] VITALS: BP 116/77; PULSE 64; RESP 18; O2SAT 97
== END 2021-11-17 03:39 | disposition home or self-care (01) ==
PROVIDERS: Emergency Provider Emergency Medicine; PCP Family Medicine; Visit Provider Emergency Medicine
DX: O99.891 Other specified diseases and conditions complicating pregnancy (principal); Z3A.01 Less than 8 weeks gestation of pregnancy; N93.8 Other specified abnormal uterine and vaginal bleeding
CPT/HCPCS: 76817; 84702; 84703; 85025; 99282; A4216

== ENCOUNTER → 2022-05-23 | Outpatient (CLI) | payer MEDICAID, SELFPAY ==
[2022-05-23 15:24] LABS: Bacteria 0 SEEN /hpf (None Seen); Mucous, Urine 0 SEEN /hpf (<or=2+); Red Blood Cells-Urine 0 SEEN /hpf (0-5); White Blood Cells 0 SEEN /hpf (0-5)
[2022-05-23 15:39] LABS: Color, Urine Yellow (Yellow); Glucose, Dipstick Normal (Normal); Ketone-Dipstick Negative (Negative); Leukocyte Esterase-Dipstick 25 /ul (Negative); Nitrite-Dipstick Negative (Negative); Occult Blood-Urine Negative /ul (Negative); Protein-Dipstick Negative (Negative); Specific Gravity, Urine 1.015 (1.002-1.030); Urine Bilirubin Dipstick Negative (Negative); Urine Clarity Clear (Clear); Urine Urobilinogen Normal (Normal)
[2022-05-23 16:15] LABS: Squamous Epithelial Cells - UA 0-5 SEEN /hpf (5-10)
== END | disposition home or self-care (01) ==
LOC: LABSPEC 15:12
PROVIDERS: PCP Family Medicine; Visit Provider Physician Assistant Surgical
DX: R30.0 Dysuria (principal)
CPT/HCPCS: 81001; 87086; 87088

== ENCOUNTER 2022-12-19 14:13 | Emergency (ER) | payer MEDICAID, SELFPAY ==
[2022-12-19 14:14] VITALS: BP 110/87; PULSE 73; RESP 18; TEMP 36; O2SAT 99; BMI 36.3
--- NOTE | 2022-12-19 14:27 | ED.VIS.FEGU ---
HPI HPI - Female History of Present Illness Chief Complaint: Vag Bleeding Narrative Narrative: 32-year-old female presenting with vaginal bleeding. She states that about 2 months ago she had a chemical . She took the medication and was told that she would have bleeding with the next few days and did. She states that the bleeding is never stopped. She does not have an FAMILY PRESERVATION OFFICER that she established with. She tried to call for an appointment today and was told to come to the ER. She does have abdominal cramping. She reports that now she is going through a pad an hour. She has any fevers or chills. She admits to breast tenderness. Patient has had an ectopic before and has had had to have a D&C before. Patient states has not had sexual intercourse since that time and does not believe she can be . [facility] Medical History Anemia Ectopic Home Medications NK 12/19/22 [History Last Taken Unknown] ondansetron 4 mg disintegrating tablet 4 mg PO Q8H PRN PRN Nausea #14 tabs 12/19/22 [Rx Last Taken Unknown] oxycodone 5 mg capsule 5 mg PO Q6H PRN pain 3 days #12 caps 12/19/22 [Rx Last Taken Unknown] Allergy/AdvReac Type Severity Reaction Status Date / Time No Known Allergies Allergy Verified 05/23/22 13:36 Social History household members: significant other Smoking Status: Never smoker ROS ROS ED Constitutional Constitutional ED: Denies chills, fever(s) or sweats Eyes Eyes: Denies blurry vision or change in vision ENT ENT ED: Denies ear pain or sore throat Cardiovascular Cardiovascular: Denies chest pain, palpitations or racing heartbeat Respiratory/Chest Respiratory/Chest: Denies cough, dyspnea or sputum Gastrointestinal Gastrointestinal: Reports abdominal pain; Denies constipation, diarrhea, nausea or vomiting Genitourinary Genitourinary ED: Reports other Details: Vaginal bleeding, clotting ; Denies dysuria, hematuria or urinary frequency Musculoskeletal Musculoskeletal: Denies arthralgias, myalgias or neck pain Integumentary Denies abscess, Abrasions or rash Neurologic Neurologic: Denies headache(s), paresthesias or weakness Psychiatric Psychiatric: Denies anxiety, depression, suicidal ideation or suicidal thoughts Endocrine Endocrinology: Denies polydipsia or polyuria EXAM Physical Exam Const Vital Signs: 12/19/22 14:14 Temperature 96.8 F L Temperature Source Temporal Pulse Rate 73 Respiratory Rate 18 Blood Pressure 110/87 H Blood Pressure Mean 94 Pulse Ox 99 Oxygen Delivery Method Room Air Positive well nourished General Appearance ED: NAD; Negative for pallor HEENT Reports moist mucous membranes Eyes PERRL General Eye ED: Negative for pale conjunctiva Chest Wall inspection of chest normal Resp normal respiratory effort Cardio regular rate and regular rhythm GI GI Narrative: Mild suprapubic tenderness. No pain in left lower quadrant right lower quadrant. No adnexal pain. Neuro oriented x3 and CN's II-XII intact bilaterally Sensorium / Orientation: alert Motor Exam: strength 5/5 throughout Psych mental status grossly normal Skin General Skin Exam: Negative for jaundice or pallor MDM MDM MDM Narrative Medical decision making narrative: Patient presenting with some mild suprapubic/pelvic pain. Patient states she had chemical 2 months ago. She is presenting with more vaginal bleeding and states he is going through a pad an hour. She is also complaining of some breast tenderness. She states she is always dizzy so she is not sure if she had a change. Patient had typical bleeding after taking the chemical and the bleeding has never resolved. She does not have an FAMILY PRESERVATION OFFICER to follow-up with. Differential includes ectopic , dysfunctional uterine bleeding, first trimester , retained products of conception. CBC obtained to assess white blood cell count, hemoglobin, platelets. CMP to assess liver function, renal function, electrolytes. hCG to assess for . CBC showed no significant leukocytosis. Hemoglobin stable 11.6. Platelets are normal. Renal function and electrolytes unremarkable. LFTs are normal. hCG came back positive. I did obtain a quantitative hCG and this is 34. STAT6 ultrasound was obtained and this shows abnormal endometrial thickening concerning for endometrial hyperplasia, neoplasia and recommend gynecological follow-up. I spoke with Dr. Martin and she believes that she was likely miscarrying still. She wanted to give her Cytotec 600 mg and something for pain for home. She will follow-up with her next week and repeat ultrasound will be done then. Patient was amenable to this plan. Discharged home with Roxicodone and Zofran. Impression: 1. Incomplete miscarriage Lab Data Labs: Laboratory Results - last 24 hr 12/19/22 14:45 WBC 7.5 RBC 4.11 L Hgb 11.6 L Hct 36.2 L MCV 88.1 MCH 28.2 MCHC 32.0 RDW Std Deviation 42.5 RDW Coeff of Mirlande 13.2 Plt Count 193 MPV 11.0 Immature Gran % (Auto) 0.400 Neut % (Auto) 70.4 H Lymph % (Auto) 22.3 Placer % (Auto) 5.3 Eos % (Auto) 1.2 Baso % (Auto) 0.4 Absolute Neuts (auto) 5.3 Absolute Lymphs (auto) 1.68 Nucleated RBC % 0 Sodium 139 Potassium 3.1 L Chloride 109 H Carbon Dioxide 27.0 Anion Gap 3 L BUN 9 Creatinine 0.81 Estim Creat Clear Calc 101.51 Est GFR (MDRD) Af Amer 106 Est GFR (MDRD) Non-Af 88 BUN/Creatinine Ratio 11.1 Glucose 90 Calcium 8.5 Total Bilirubin 0.40 AST 15 ALT 18 Alkaline Phosphatase 74 Total Protein 7.2 Albumin 3.3 Globulin 3.9 Albumin/Globulin Ratio 0.8 L HCG, Quant 34 H Serum , Qual POSITIVE H Radiography Diagnostic Testing: Clinical Impression(s) from Imaging Studies Obstetrics Ultrasound 12/19/22 14:40 IMPRESSION: Abnormal endometrial thickening. Differential diagnosis includes endometrial hyperplasia, however neoplasia cannot be excluded based on sonographic findings. Recommend gynecological follow-up. Electronically Signed: Brown Zapata MD at 17:04 EDT Reading Location ID and State: [address] [place] [address] Tel , Service support , Discharge Plan Triage Chief Complaint: Vag Bleeding ED Provider: Bob Cat Dx/Rx/DC Orders Instructions: Miscarriage Dc, ED Vaginal Tear (Non-Obstetric) Prescriptions: New oxycodone 5 mg capsule 5 mg PO Q6H PRN (Reason: pain) 3 Days Qty: 12 0RF ondansetron 4 mg tablet,disintegrating 4 mg PO Q8H PRN PRN (Reason: Nausea) Qty: 14 0RF No Action NK Stand Alone Forms: ED Work / School Excuse Primary Care Provider: Care Physician,No Primary Referrals: Arnulfo Brock MD [[facility]] - Disposition Disposition: Home, Self Care Discharge Date/Time: 12/19/22 18:32
--- NOTE | 2022-12-19 14:40 | US_ITS ---
INDICATION: pelvic pain/ vaginal bleeding EXAMINATION: Ultrasound US Transvaginal Non-OB TECHNIQUE: Transvaginal (for optimal evaluation of the adnexa) pelvic ultrasound was performed. Grayscale, spectral waveform, and color flow Doppler evaluation of the adnexa. COMPARISON: None. FINDINGS: UTERUS: . The uterus measures 12.0 x 8.0 x 6.1 cm. There is no uterine mass. Multiple cervical nabothian cysts. The endometrial stripe measures 2.1 cm in AP diameter which is thickened for a premenopausal patient. RIGHT OVARY: 3.4 x 2.1 x 1.7 cm. Non-enlarged, normal echogenicity. Doppler color flow demonstrated, no waveforms obtained. LEFT OVARY: 3.2 x 2.8 x 2.5 cm. Non-enlarged, normal echogenicity. Doppler color flow demonstrated, no waveforms obtained. FREE FLUID: None. US/Transvaginal w/Preg US IMPRESSION: Abnormal endometrial thickening. Differential diagnosis includes endometrial hyperplasia, however neoplasia cannot be excluded based on sonographic findings. Recommend gynecological follow-up. Electronically Signed: Brown Zapata MD at 17:04 EDT ,
[2022-12-19 14:50] LABS: Absolute Lymphocyte Count 1.68 X10^3/uL (0.83-4.51); Absolute Neutrophil Count 5.3 X10^3/uL (2.0-7.7); Basophil# 0.03 X10^3/uL; Basophil% 0.4 % (0-1); Eosinophil# 0.09 X10^3/uL; Eosinophils% 1.2 % (0-5); Hematocrit 36.2 % (37-47); Hemoglobin 11.6 g/dL (12.0-15.0); Lymphocyte # 1.68 X10^3/ul (0.83-4.51); Lymphocyte % 22.3 % (19-41); Mean Corpuscular Hgb 28.2 pg (27.0-32.0); Mean Corpuscular Volume 88.1 fL (81-99); Monocyte% 5.3 % (0-10); NRBC Flagged by Analyzer 0 % (0-5); Neutrophil % 70.4 % (47-70); Platelet Count 193 K/mm3 (150-450); RBC Distribution Width CV 13.2 % (11.6-14.6); RBC Distribution Width SD 42.5 fl (35.1-43.9); Red Blood Count 4.11 M/mm3 (4.2-5.4); White Blood Count 7.5 K/mm3 (4.4-11.0)
[2022-12-19 14:58] LABS: Internal QC Validated? YES +Cl - CLEAR BKGD
[2022-12-19 14:59] LABS: Pregnancy, Serum, hCG Quali. POSITIVE Negative
--- NOTE | 2022-12-19 15:00 | ED.RN ---
LAB CALLED POSITIVE
[2022-12-19 15:06] LABS: ALB/GLOB Ratio 0.8 RATIO (0.9-2.4); AST(SGOT) 15 U/L (15-37); Alanine Aminotransfer ALT/SGPT 18 U/L (13-56); Albumin, Serum 3.3 g/dL (3.2-5.0); Alkaline Phosphatase 74 U/L (45-117); Anion Gap 3 (5-15); BUN 9 mg/dL (7-18); BUN/Creat Ratio 11.1 RATIO (10-20); Calcium,Total 8.5 mg/dL (8.5-10.1); Chloride 109 mmol/L (98-107); Creatinine, Serum 0.81 mg/dL (0.55-1.02); EST Glomerular Filtration Rate 88 mL/min (>60); Est Glom Filt Rate - Afr Amer 106 mL/min (>60); Estimated Creatinine Clearance 101.51 ml/min; Globulin 3.9 g/dL (2.2-4.2); Glucose 90 mg/dL (74-106); Potassium 3.1 mmol/L (3.5-5.1); Protein, Total 7.2 g/dL (6.4-8.2); Sodium Level 139 mmol/L (136-145)
[2022-12-19 15:30] LABS: hCG Titer Quant., Serum 34 mIU/mL (1-3)
[2022-12-19] MEDS: oxyCODONE 5 MG Tablet PO (18:24)
[2022-12-19] MEDS: miSOPROStol 200 MCG Tablet 600 MCG PO (18:24)
== END 2022-12-19 18:32 | disposition home or self-care (01) ==
PROVIDERS: Emergency Provider Student in an Organized Health Care Education/Training Program; Visit Provider Student in an Organized Health Care Education/Training Program
DX: O03.4 Incomplete spontaneous abortion without complication (principal); R10.2 Pelvic and perineal pain
CPT/HCPCS: 76817; 80053; 84702; 84703; 85025; 99282; J7030; A4216

== ENCOUNTER → 2023-02-23 | Outpatient (CLI) | payer MEDICAID, SELFPAY | END | disposition home or self-care (01) | PROVIDERS: Visit Provider Physician Assistant | DX: R10.31 Right lower quadrant pain (principal); R10.32 Left lower quadrant pain | CPT/HCPCS: 87086; 87088 ==

== ENCOUNTER 2024-09-21 14:44 | Emergency (ER) | payer MEDICAID, SELFPAY ==
[2024-09-21 14:45] VITALS: BP 120/79; PULSE 83; RESP 15; TEMP 36.7; O2SAT 98; BMI 33.6
--- NOTE | 2024-09-21 15:38 | ED.VIS.FEGU ---
HPI HPI - Female History of Present Illness Chief Complaint: Vag Bld, Preg Informant: patient Pain Pain: Positive for Pelvic Pain Onset: Days (5) Context: Gradual Onset Timing: Continuous and Waxes and wanes Quality: Positive for Cramping Location: Suprapubic Worsened by: - (Nothing) Relieved by: - (Nothing) Bleeding Issue: Positive for Vaginal bleeding and Passing clots Onset: Days (5) Context: Gradual Onset Timing: Continuous Current Severity: Heavy Associated Symptoms Associated Symptoms: Negative for Dysuria, Frequency or Hematuria Test: Positive Control: No control P: 3 Ab: 3 Narrative Narrative: Patient presents with possible miscarriage that has been getting worse over the past 5 days. Patient states she started having some pelvic cramping. Patient states this is over the suprapubic area. Patient states it has been waxing and waning. Patient states nothing makes it better and nothing makes it worse. Patient admits to some vaginal bleeding and passing clots. Patient states she started passing clots last night and took 3 home test which were all positive. Patient states her last normal menstrual period was 08/22 through 08/26/2024. Patient denies any dysuria, frequency, or hematuria. Patient states she does feel lightheaded at times. Patient states she currently does not have an VICE PRESIDENT OF PROCUREMENT. Patient states she had been prescribed a control patch at the [facility] but states she was unable to tolerate this and removed it. Prior similar symptoms: Yes PFSH PFSH Medical History (Updated 09/21/24 @ 20:[address] Yehuda Mercado, DO) Ectopic Anemia Home Medications ?Medication ?Instructions ?Recorded ?Last Taken ?Type pseudoephedrine 60 mg-DM 15 1 tab PO Q4-6H PRN cold symptoms 07/09/23 Unknown Rx mg-guaifenesin 400 mg tablet #20 tabs (Capmist DM) Allergy/AdvReac Type Severity Reaction Status Date / Time No Known Allergies Allergy Verified 09/21/24 14:48 Surgical History Hx of dilation and curettage Hx of section Social History household members: significant other Smoking Status: Never smoker ROS ROS ED Constitutional Constitutional ED: Reports fever(s), subjective and sweats; Denies chills Eyes Eyes: Reports blurry vision; Denies diplopia ENT ENT ED: Denies rhinorrhea or sore throat Cardiovascular Cardiovascular: Denies chest pain or palpitations Respiratory/Chest Respiratory/Chest: Denies cough or dyspnea Gastrointestinal Gastrointestinal: Reports nausea; Denies vomiting Genitourinary Genitourinary ED: Denies dysuria or hematuria Musculoskeletal Musculoskeletal: Denies back pain or neck pain Integumentary Denies abscess or rash Neurologic Neurologic: Reports headache(s); Denies weakness Allergic/Immunologic Allergic/Immunologic ED: Denies mouth swelling or urticaria EXAM Physical Exam Const Vital Signs: 09/21/24 14:45 09/21/24 16:45 09/21/24 18:00 Temperature 98.1 F Temperature Source Oral Pulse Rate 83 70 72 Respiratory Rate 15 18 16 Blood Pressure 120/79 98/67 99/66 Blood Pressure Mean 92 77 77 Pulse Ox 98 99 100 Oxygen Delivery Method Room Air Positive well nourished and well developed General Appearance ED: well developed and NAD HEENT Reports moist mucous membranes Neck supple and no JVD Resp normal respiratory effort and clear to auscultation bilaterally Cardio regular rate and regular rhythm GI soft to palpation and non-distended Palpation: tender LLQ, RLQ and suprapubic; Negative for guarding Extremity normal to inspection and full ROM General Extremety ED: Negative for edema or tenderness General Extremity: Negative for edema Neuro oriented x3, CN's II-XII intact bilaterally and no sensory deficits noted Sensorium / Orientation: alert Motor Exam: strength 5/5 throughout Psych mental status grossly normal MDM MDM MDM Narrative Medical decision making narrative: Differential diagnosis includes ectopic , spontaneous miscarriage, menorrhagia, ovarian cyst, urinary tract infection, and uterine fibroids. CBC will be obtained to assess for leukocytosis and anemia. Comprehensive metabolic profile will be obtained to assess for hepatic function, renal function, and electrolyte abnormality. Lipase will be obtained to assess for pancreatitis. Serum quantitative hCG will be obtained to assess for . Urinalysis will be obtained to assess for urinary tract infection and hematuria. History & Record Review Additional record(s) reviewed:: Prior ED visit and Prior labs Lab Data Attestation: I reviewed the patient's lab results. Lab results narrative: CBC was reviewed and there is a mild anemia with a hemoglobin of 11.5 and hematocrit of 34.5. Comprehensive metabolic profile was reviewed and was essentially within normal limits. Lipase was reviewed and was normal at 44. Quantitative hCG was reviewed and was 176. Urinalysis was reviewed. Occult blood was 250 with greater than 100 red blood cells. Leukocyte Estrace was 100 with 25-50 white blood cells. There are 10-25 epithelial cells. There is 1+ bacteria. Labs: Laboratory Results - last 24 hr 09/21/24 09/21/24 16:00 16:20 WBC 7.3 RBC 4.14 L Hgb 11.5 L Hct 34.5 L MCV 83.3 MCH 27.8 MCHC 33.3 RDW Std Deviation 43.3 RDW Coeff of Mirlande 14.3 Plt Count 194 MPV 11.0 Immature Gran % (Auto) 0.300 Neut % (Auto) 66.0 Lymph % (Auto) 26.4 [place] % (Auto) 5.8 Eos % (Auto) 1.2 Baso % (Auto) 0.3 Absolute Neuts (auto) 4.8 Absolute Lymphs (auto) 1.92 Nucleated RBC % 0 Sodium 137 Potassium 3.7 Chloride 105 Carbon Dioxide 23.0 Anion Gap 10 BUN 7 Creatinine 0.72 Estim Creat Clear Calc 133.28 Est GFR (MDRD) Non-Af 114 BUN/Creatinine Ratio 10.0 Glucose 91 Calcium 8.7 Total Bilirubin 0.32 AST 19 ALT 11 Alkaline Phosphatase 65 Total Protein 6.6 Albumin 3.8 Globulin 2.8 Albumin/Globulin Ratio 1.4 Lipase 44 HCG, Quant 176 H Serum , Qual POSITIVE Urine Color Red Urine Clarity Turbid Urine pH 7.0 Ur Specific [place] 1.010 Urine Protein 500 H Urine Glucose (UA) Normal Urine Ketones Negative Urine Occult Blood 250 H Urine Nitrite Negative Urine Bilirubin Negative Urine Urobilinogen Normal Ur Leukocyte Esterase 100 H Urine RBC > 100 SEEN Urine WBC 25-50 SEEN Ur Squamous Epith Cells 10-25 SEEN Urine Bacteria 1+ Urine Mucus 0 SEEN Radiography Diagnostic Testing: Clinical Impression(s) from Imaging Studies Obstetrics Ultrasound 09/21/24 17:37 IMPRESSION: No intrauterine gestational sac is noted at this time. No acute ovarian torsion at this time. Reading Location: [facility] Pelvic ultrasound was obtained. There is no intrauterine gestational sac. There is no yolk sac. Cervix is closed. There is no ovarian torsion. There is no cyst. This was interpreted by the radiologist and was also independently reviewed by myself. Treatment and Re-Evaluation Narrative: Patient was given IV fluids. Patient was feeling somewhat better on reevaluation. Patient was advised of her findings. Patient was given a referral for VICE PRESIDENT OF PROCUREMENT. Patient was instructed to follow-up in 2 days for reevaluation and likely repeat quantitative hCG. Patient was advised that this could be too early of her to visualize any intrauterine or this could be a complete miscarriage. Patient was advised that a follow-up quantitative hCG would help determine if this was a complete miscarriage or if this is an early . Patient was instructed on pelvic rest. Patient understood and was agreeable with the plan. All questions were answered Discharge Plan Triage Chief Complaint: Vag Bld, Preg ED Provider: Yehuda Mercado Dx/Rx/DC Orders Clinical Impression: Threatened miscarriage in early , Pelvic pain Instructions: Miscarriage Threatened Prescriptions: No Action Capmist DM 60-15-400 mg tablet 1 tab PO Q4-6H PRN (Reason: cold symptoms) Qty: 20 0RF Rx Instructions: do not exceed 4 doses per 24 hrs Primary Care Provider: Care Physician,No Primary Referrals: Gema Malone DO [Med Staff - Active Staff] - 2 Days Care Physician,No Primary [Primary Care Provider] - Activity Restrictions/Additional Instructions: Maintain complete vaginal rest. No tampons, no intercourse, no douching. Print Language: French Disposition Disposition: Home, Self Care
[2024-09-21 16:16] LABS: Absolute Lymphocyte Count 1.92 X10^3/uL (0.83-4.51); Absolute Neutrophil Count 4.8 X10^3/uL (2.0-7.7); Basophil# 0.02 X10^3/uL; Basophil% 0.3 % (0-1); Eosinophil# 0.09 X10^3/uL; Eosinophils% 1.2 % (0-5); Hematocrit 34.5 % (37-47); Hemoglobin 11.5 g/dL (12.0-15.0); Lymphocyte # 1.92 X10^3/ul (0.83-4.51); Lymphocyte % 26.4 % (19-41); Mean Corp Hgb Conc 33.3 g/dL (32-36); Mean Corpuscular Hgb 27.8 pg (27.0-32.0); Mean Corpuscular Volume 83.3 fL (81-99); Monocyte# 0.42 X10^3/uL; Monocyte% 5.8 % (0-10); NRBC Flagged by Analyzer 0 % (0-5); Platelet Count 194 K/mm3 (150-450); RBC Distribution Width CV 14.3 % (11.6-14.6); RBC Distribution Width SD 43.3 fl (35.1-43.9); Red Blood Count 4.14 M/mm3 (4.2-5.4); White Blood Count 7.3 K/mm3 (4.4-11.0)
[2024-09-21 16:21] LABS: Internal QC Validated? YES +Cl - CLEAR BKGD; Pregnancy, Serum, hCG Quali. POSITIVE Negative
[2024-09-21 16:22] LABS: Record Kit Lot#, Serum Preg. 947241
[2024-09-21] MEDS: 0.9% Normal Saline (1000mL) 1,000 ML 999 ML IV (16:27)
[2024-09-21 16:36] LABS: Mucous, Urine 0 SEEN /hpf (<or=2+)
[2024-09-21 16:37] LABS: ALB/GLOB Ratio 1.4 RATIO (0.9-2.4); AST(SGOT) 19 U/L (<=31); Alanine Aminotransfer ALT/SGPT 11 U/L (<=34); Albumin, Serum 3.8 g/dL (3.5-5.0); Alkaline Phosphatase 65 U/L (35-104); Anion Gap 10 (5-15); BUN 7 mg/dL (4-19); Calcium,Total 8.7 mg/dL (7.6-11.0); Chloride 105 mmol/L (98-108); Creatinine, Serum 0.72 mg/dL (0.70-1.20); EST Glomerular Filtration Rate 114 (>60); Estimated Creatinine Clearance 133.28 ml/min (50-250); Globulin 2.8 g/dL (2.2-4.2); Glucose 91 mg/dL (70-99); Lipase 44 U/L (13-75); Potassium 3.7 mmol/L (3.3-5.1); Protein, Total 6.6 g/dL (5.9-8.4); Sodium Level 137 mmol/L (133-145); Total Bilirubin 0.32 mg/dL (0.00-1.30)
[2024-09-21 16:42] LABS: Color, Urine Red (Yellow); Glucose, Dipstick Normal (Normal); Ketone-Dipstick Negative (Negative); Leukocyte Esterase-Dipstick 100 /ul (Negative); Nitrite-Dipstick Negative (Negative); Occult Blood-Urine 250 /ul (Negative); Protein-Dipstick 500 mg/dl (Negative); Urine Bilirubin Dipstick Negative (Negative); Urine Clarity Turbid (Clear); Urine Urobilinogen Normal (Normal)
[2024-09-21 16:45] VITALS: BP 98/67; PULSE 70; RESP 18; O2SAT 99
[2024-09-21 17:16] LABS: hCG Titer Quant., Serum 176 mIU/mL (<9 non-preg)
[2024-09-21 17:25] LABS: Red Blood Cells-Urine > 100 SEEN /hpf (0-5)
[2024-09-21 17:26] LABS: White Blood Cells 25-50 SEEN /hpf (0-5)
[2024-09-21 17:27] LABS: Squamous Epithelial Cells - UA 10-25 SEEN /hpf (5-10)
[2024-09-21 17:28] LABS: Bacteria 1+ /hpf (None Seen)
--- NOTE | 2024-09-21 17:37 | US_ITS ---
PROCEDURE: TRANSVAGINAL W/PREG US 09/21/2024 REASON FOR EXAM: PELVIC PAIN TECHNIQUE: Transvaginal pelvic ultrasound COMPARISON: 12/19/2022 FINDINGS: Uterus measures 12.6 x 8.1 x 5.8 cm. No fibroids are noted. No intrauterine gestational sac is noted at this time. No yolk sac or embryo is noted at this time. Cervix appears closed. Endometrial stripe measures 1.3 cm. No fluid is noted within the cul-de-sac. Right ovary measures 2.4 x 2.0 x 1.8 cm and left ovary measures 3.0 x 1.5 x 1.5 cm. Right ovarian cyst measures 1.3 x 1.4 x 1.0 cm. Normal vascular flow is noted within bilateral ovaries. US/Transvaginal w/Preg US IMPRESSION: No intrauterine gestational sac is noted at this time. No acute ovarian torsio n at this time. Reading Location: [id number]
[2024-09-21 18:00] VITALS: BP 99/66; PULSE 72; RESP 16; O2SAT 100
[2024-09-21 20:00] VITALS: BP 101/72; PULSE 81; RESP 16; TEMP 36.8; O2SAT 100
== END 2024-09-21 20:12 | disposition home or self-care (01) ==
PROVIDERS: Emergency Provider Emergency Medicine; Referring Provider Emergency Medicine; Visit Provider Emergency Medicine
DX: O20.0 Threatened abortion (principal); O99.891 Other specified diseases and conditions complicating pregnancy; R10.2 Pelvic and perineal pain; Z3A.00 Weeks of gestation of pregnancy not specified
CPT/HCPCS: 76817; 80053; 81001; 83690; 84702; 84703; 85025; 87086; 96360; 96361; 99283; A4216